=== PATIENT | female | born 1970 | race Caucasian/White ===

== ENCOUNTER 2018-04-01 11:16 | Inpatient (IN) | payer BC ==
--- NOTE | 2018-03-19 12:19 | HP ---
HISTORY AND PHYSICAL: DATE OF OFFICE VISIT: 03/19/18. DATE OF SURGERY: 04/01/18. SURGEON: Georgia Mello MD.* (DICTATED BY KOBE FINLEY) PROCEDURE: Left total knee arthroplasty. CHIEF COMPLAINT: Left knee pain. HISTORY OF PRESENT ILLNESS: Ms. Leroy is a 48-year-old female with complaints of left knee pain. She has failed conservative management and elected to proceed with a left total knee arthroplasty, which is scheduled for 04/01/[address] Mello. PAST MEDICAL HISTORY: Hypertension, goiter, and anxiety. PAST SURGICAL HISTORY: Tubal ligation, partial hysterectomy. CURRENT MEDICATIONS: 1. Metoprolol 50 mg daily. 2. Potassium chloride 20 mEq daily. 3. Chlorthalidone 50 mg daily. 4. Fluoxetine 20 mg daily. 5. Buspirone 15 mg three times a day. 6. Tylenol as needed. ALLERGIES: LATEX and ERYTHROMYCIN. FAMILY HISTORY: Kidney disease, dementia, cervical cancer, and diabetes. SOCIAL HISTORY: She is a 48-year-old female. She lives with her son and ex- . She does not smoke or use drugs; uses occasional alcohol. REVIEW OF SYSTEMS: A complete 14-point review of systems was reviewed with the patient. It is positive for thyroid goiter and occasional palpitations secondary to anxiety. She denies history of DVT, PE, hepatitis, HIV or anesthesia problems. PHYSICAL EXAMINATION GENERAL: She is well developed, well nourished, in no acute distress. VITAL SIGNS: She stands 5 feet 4 inches tall, weighs 245 pounds. Her blood pressure is 128/82, her heart rate is 72. HEENT: Normocephalic, atraumatic. NECK: Supple. No palpable lymph nodes. PULMONARY: The lungs are clear to auscultation bilaterally. CARDIO: Regular rate and rhythm. Strong S1, S2. ABDOMEN: Soft, nontender, nondistended. NEUROLOGIC: She is alert and oriented x3. Cranial nerves II through XII are intact. MUSCULOSKELETAL: Left lower extremity skin is intact. There are no open wounds or abrasions. There is a [id number] joint effusion, some tenderness over the medial and lateral joint line. Range of motion is 10 to 125 degrees, 2+ dorsalis pedis pulses, 5/5 lower extremity strength, and intact sensation. ASSESSMENT AND PLAN: Ms. Leroy is a 48-year-old female with severe end-stage osteoarthritis of her left knee. She has failed conservative management and elected to proceed with a left total knee arthroplasty, which is scheduled for 04/01/[address] Mello discussed the risks and benefits of the surgery at today's visit and all of her questions were answered. She will follow up with Dr. Mello 2 weeks after the surgery. KOBE FINLEY [id number]/[facility] #: [id number] MTDD
[~2018-04-01 11:16] MED LIST: Acetaminophen IV 1GM/100ML * 1,000 MG/100 ML VIAL IVPB ONE; Buffered Lidocaine 0.9% SYRIN* 5 ML/SYR SYRINGE INTRADERM ONE; Dexamethasone IV* 4 MG/ML 1 ML (4 MG) IV SLOW PU ONE; Famotidine IV* 10 MG/ML 2 ML (20 mg) IV ONE; Gabapentin CAP(*) 300 MG PO ONE; Midazolam* 1 MG/ML 5 ML VIAL (5 MG) ONE; Propofol* 10 MG/ML 20 ML BTL IV PUSH ONE; celeCOXIB CAP* 200 MG PO ONE; fentaNYL* 50 MCG/ML 2 ML VIAL (100 MCG VIAL) ONE
[2018-04-01] MEDS ORDERED: Dexamethasone IV* 4 MG/ML 1 ML (4 MG) ONE (11:19)
[2018-04-01] MEDS ORDERED: Famotidine IV* 10 MG/ML 2 ML (20 mg) ONE (11:19)
[2018-04-01] MEDS ORDERED: celeCOXIB CAP* 100 MG ONE ×2 (11:20→11:21)
[2018-04-01] MEDS ORDERED: Gabapentin CAP(*) 300 MG ONE (11:21)
[2018-04-01] MEDS ORDERED: ceFAZolin 2 GM PREMIX (*) 2 GM/50 ML BAG IVPB ONE (11:21)
[2018-04-01] MEDS ORDERED: Ondansetron ODT TAB* 4 MG ONE (11:21)
[2018-04-01] MEDS ORDERED: Acetaminophen IV 1GM/100ML * 100 ML ONE (11:58)
[2018-04-01] MEDS: Ondansetron ODT TAB* 4 MG PO ONE (12:01)
[2018-04-01] MEDS ORDERED: ROPIVACAINE 5 MG/ML 30 ML BTL (0.5%) ONE (12:27)
[2018-04-01] MEDS ORDERED: Bupivacaine 0.5% SDV PF* 30ML VIAL ONE (12:41)
[2018-04-01] MEDS ORDERED: Bupivacaine 0.5% PF 10 ML VIAL INJ ONE (12:49)
[2018-04-01] MEDS ORDERED: Midazolam* 1 MG/ML 5 ML VIAL (5 MG) ONE (12:50)
[2018-04-01] MEDS ORDERED: Lidocaine 0.5%* 50 ML SDV ONE (13:00)
[2018-04-01] MEDS ORDERED: DiMENhydriNATE IV* 50 MG/ML VIAL IV PUSH PRN (13:55)
[2018-04-01] MEDS ORDERED: HYDROmorphone INJ* 1 MG/ML CARPUJECT SYRINGE IV PRN (13:55)
[2018-04-01] MEDS ORDERED: oxyCODONE TAB* 5 MG TAB PO PRN (13:55)
[2018-04-01] MEDS ORDERED: Naloxone* 0.4 MG/ML 1 ML VIAL IV PRN (13:55)
[2018-04-01] MEDS ORDERED: fentaNYL* 50 MCG/ML 2 ML VIAL (100 MCG VIAL) IV PRN (13:55)
[2018-04-01] MEDS ORDERED: Ondansetron INJ* 2 MG/ML VIAL IV PRN ×2 (13:55→15:38)
[2018-04-01] MEDS ORDERED: Propofol* 10 MG/ML 20 ML BTL IV PUSH ONE (14:04)
[2018-04-01] MEDS ORDERED: diPHENhydraMINE IV* 50 MG/ML 1 ml VIAL (BENADRYL) IV PRN (15:38)
[2018-04-01] MEDS ORDERED: Cyclobenzaprine TAB* 10 MG PO PRN (15:38)
[2018-04-01] MEDS ORDERED: Bisacodyl SUPP* 10 MG SUPP PR PRN (15:38)
[2018-04-01] MEDS ORDERED: oxyCODONE/Acetamin 5/325 MG* TAB PO PRN (15:38)
[2018-04-01] MEDS ORDERED: Acetaminophen TAB* 325 MG PO PRN (15:38)
[2018-04-01] MEDS ORDERED: Magnesium Hydroxide LIQ* 30 ML UDC PO PRN (15:38)
--- NOTE | 2018-04-01 16:47 | RAD ---
HISTORY: Status post left knee arthroplasty. COMPARISONS: None VIEWS: 3, Frontal and lateral views of the left knee FINDINGS: BONE DENSITY: Normal. BONES: The patient is status post left knee arthroplasty. There is no hardware failure or osteolysis. JOINTS: The patient is status post left knee arthroplasty. ALIGNMENT: There is no dislocation. SOFT TISSUES: Unremarkable. OTHER FINDINGS: None. IMPRESSION: STATUS POST LEFT KNEE ARTHROPLASTY.
[2018-04-01] MEDS ORDERED: Warfarin TAB(*) 6 MG PO ONE (21:00)
[2018-04-01] MEDS: Docusate CAP* 100 MG PO SCH (21:32)
[2018-04-01] MEDS: Magnesium Hydroxide LIQ* 30 ML UDC PO SCH (21:32)
[2018-04-01] MEDS: ceFAZolin 1 GM in Dextrose (*) 1 GM/50 ML BAG IVPB SCH (21:42)
[2018-04-01] MEDS: FLUoxetine CAP* 20 MG PO SCH (21:44)
[2018-04-01] MEDS: busPIRone TAB* 15 MG PO SCH (21:45)
[2018-04-01] MEDS: oxyCODONE TAB* 5 MG TAB PO PRN (22:08)
--- NOTE | 2018-04-02 01:19 | CONS ---
CC: Dr. Mello; KOBE Al * CONSULTATION REPORT: DATE OF CONSULT: 04/01/18 PRIMARY CARE PROVIDER: KOBE Al REQUESTING PHYSICIAN: Dr. Mello. REASON FOR CONSULT: Management of hypertension in a patient who is status post left total knee arthroplasty. CHIEF COMPLAINT: "I feel funny." HISTORY OF PRESENT ILLNESS: Ariela Leroy is a 48-year-old female status post left total knee arthroplasty by Dr. Mello, who is now feeling "funny" after anesthesia. She complains of mild tingling in toes of bilateral legs after her spinal anesthesia. She was seen very shortly postoperatively and her spinal anesthesia is still working. Otherwise, she has no complaints. PAST MEDICAL HISTORY: 1. Hypertension. 2. History of goiter with normal reported thyroid function studies in the past. 3. History of anxiety. 4. History of right bundle branch block in the past. 5. History of tubal ligation and partial hysterectomy. MEDICATIONS AT HOME: Include: 1. BuSpar 15 mg 3 times a day. 2. Potassium chloride 20 mEq daily. 3. Multivitamin 1 tablet daily. 4. Metoprolol succinate XL 50 mg daily. 5. Fluoxetine 20 mg daily. 6. Chlorthalidone 50 mg daily. ALLERGIES: ADHESIVE TAPE, ERYTHROMYCIN, and LATEX. FAMILY HISTORY: Positive for mother with history of chronic kidney disease, seizures, who in her 70s. The patient's father is alive at the age of 87 with dementia in the intermediate. The patient's father also has history of kidney tumor and chronic kidney disease. The patient's sister had cervical cancer. SOCIAL HISTORY: The patient is a hutton by profession. She denies any tobacco or drug use. She drinks alcohol occasionally. Her surrogate decision maker is her daughter, Veronica Bird. REVIEW OF SYSTEMS: Please see history of present illness. Please note that the patient is still mildly sedated after the procedure. All the remaining 12 systems reviewed with the patient and were otherwise negative. PHYSICAL EXAM: Blood pressure of 112/85, heart rate of 63 and regular, respiratory rate 23, oxygen saturation 98% on 2 L of oxygen via nasal cannula, temperature of 97.0. General: The patient is a pleasant 48-year-old female, who is in no acute distress. The patient is slightly somnolent, but otherwise alert and oriented x3. HEENT: Head: Atraumatic, normocephalic. Eyes: Pupils are equal, reactive to light and accommodation. Oropharynx clear. Mucosa moist. Neck: Supple. No JVD. No bruits bilaterally. Positive for goiter bilaterally with no nodularities on palpation. Cardiovascular: Regular rate and rhythm. No murmur. Respiratory: Clear to auscultation bilaterally. Abdomen: Soft, nontender. Bowel sounds are present in all 4 quadrants. Extremities: There is no ankle edema. Pulses are +2 bilaterally. No clubbing or cyanosis. The patient's left postoperative knee is placed in a Cryo unit. Postoperative dressings were not removed for evaluation. Neuro evaluation was deferred due to the patient's anesthesia. Grossly, the patient's speech is clear and motor strength in the bilateral upper extremities is not impaired. ASSESSMENT AND PLAN: 1. In regards to the patient's hypertension management, I recommend holding the patient's chlorthalidone and continuing metoprolol with hold parameters. I will also hold the patient's potassium supplement for the time being and observe potassium levels in the morning. 2. For the patient's history of anxiety, BuSpar is going to be continued as well as Prozac. 3. DVT prophylaxis will be addressed by the primary service. At this point, the recommendation will be to continue metoprolol and continue holding the patient's chlorthalidone for the time of her hospitalization. All the medications can be restarted at discharge. Medicine will follow on as needed basis and for the time being sign off. Thank you very much for allowing me to see your patient in consultation and please call if any problems need to be addressed in the future. [id number]/[facility] #: [id number] TERRENCE
[2018-04-02] MEDS: oxyCODONE/Acetamin 5/325 MG* TAB PO PRN ×4 (02:07→17:29)
[2018-04-02] MEDS: Morphine VIAL* 4 MG/ML VIAL (1 ml vial) IV PRN ×2 (04:04→18:24)
[2018-04-02] MEDS: oxyCODONE TAB* 5 MG TAB PO PRN ×4 (04:06→21:14)
[2018-04-02] MEDS: ceFAZolin 1 GM in Dextrose (*) 1 GM/50 ML BAG IVPB SCH ×2 (04:50→15:26)
[2018-04-02 05:12] LABS: Hematocrit 35 % (35-47); Hemoglobin 12.5 g/dl (12.0-16.0); Mean Platelet Volume 8.3 um3 (7.4-10.4); Platelet Count 220 10^3/ul (150-450)
[2018-04-02 05:15] LABS: INR 1.1 (0.77-1.02)
[2018-04-02] MEDS ORDERED: Potassium Chlor TAB* 20 MEQ TAB.ER PO ONE (07:38)
[2018-04-02] MEDS: Metoprolol Succinate XL TAB* 50 MG PO SCH (07:59)
[2018-04-02] MEDS: Docusate CAP* 100 MG PO SCH ×2 (08:01→21:10)
[2018-04-02] MEDS: Vitamin THERAPEUTIC TAB PO SCH (08:01)
[2018-04-02] MEDS: Magnesium Hydroxide LIQ* 30 ML UDC PO SCH ×2 (08:01→21:17)
[2018-04-02] MEDS: KCL 10 MEQ/50 ML IVPREMIX* 10 MEQ/50 ML BAG IV SCH ×2 (08:12→12:21)
--- NOTE | 2018-04-02 08:19 | PN ---
Progress Note - Progress Note Date of Service: 04/02/18 SOAP: Subjective: 48 y/o female s/p R TKA 04/[address] Mello. Increased nausea this AM, low K- repleted both IV and PO. Doing well, working with PT. no questions re: surgery. VSS, afebrile overnight. Objective: General- Well appearing, NAD, AO, sitting in chair comfortably, eating breakfast. MSK- LLE- DF/PF = b/l, PT 2+, negative homans sign, dressing intact, no drainage noted, no drain. SITLT. Vital Signs Temp 97.5 F 04/02/18 03:22 Pulse 59 04/02/18 03:22 Resp 16 04/02/18 10:51 BP 118/60 04/02/18 03:22 Pulse Ox 95 04/02/18 03:22 Intake & Output 04/01/18 04/02/18 04/02/18 18:59 06:59 18:59 Intake Total 2500 460 Output Total 525 1750 Balance 1974 -129 Weight 110.132 kg Intake: IV Fluids 2500 LR 2500 IVPB 100 ABX - CEFAZOLIN 100 Oral 360 Output: Kwon 525 1750 Assessment: Stable 48 y/o female s/p R TKA 04/[address] Mello. Plan: - DVT prophylaxis- lovenox, coumadin - 6mg tonight - Continue PT/ OT - Follow up with Dr. Mello within 10-14 days - H&H - stable - post-op IV ABX - running - hypo-K- IV and PO supplementation given. - Possible D/C tomorrow. Acetaminophen (Tylenol Tab*) 650 mg PO Q4H PRN PRN Reason: PAIN OR TEMPERATURE Bisacodyl (Dulcolax Supp*) 10 mg IA DAILY PRN PRN Reason: constipation Buspirone HCl (Buspar Tab *) 15 mg PO TID [facility] Last Admin: 04/02/18 09:41 Dose: 15 mg Chlorthalidone (Hygroton Tab*) 50 mg PO QAM [facility] Last Admin: 04/02/18 09:41 Dose: 50 mg Cyclobenzaprine HCl (Flexeril Tab*) 10 mg PO TID PRN PRN Reason: SPASMS Diphenhydramine HCl (Benadryl Iv*) 25 mg IV Q6H PRN PRN Reason: itching Docusate Sodium (Colace Cap*) 100 mg PO BID [facility] Last Admin: 04/02/18 08:01 Dose: 100 mg Enoxaparin Sodium (Lovenox(*)) 40 mg SUBCUT Q24H [facility] Last Admin: 04/02/18 12:22 Dose: 40 mg Fluoxetine HCl (Prozac Cap*) 20 mg PO QPM [facility] Last Admin: 04/01/18 21:44 Dose: 20 mg Cefazolin Sodium/Dextrose (Kefzol 1 Gm In Dextrose Duplex (*)) 1 gm in 50 mls @ 200 mls/hr IVPB Q8H [facility] Stop: 04/02/18 13:22 Last Admin: 04/02/18 04:50 Dose: 200 mls/hr Lactulose (Lactulose*) 30 ml PO Q6H PRN PRN Reason: constipation Magnesium Hydroxide (Milk Of Magnesia Liq*) 30 ml PO BID [facility] Last Admin: 04/02/18 08:01 Dose: 30 ml Magnesium Hydroxide (Milk Of Magnesia Liq*) 30 ml PO Q6H PRN PRN Reason: constipation Metoprolol Succinate (Toprol Xl Tab*) 50 mg PO QAM [facility] Last Admin: 04/02/18 07:59 Dose: 50 mg Morphine Sulfate (Morphine Vial*) 2 mg IV Q2H PRN PRN Reason: PAIN - UNCONTROLLED Last Admin: 04/02/18 04:04 Dose: 2 mg Multivitamins (Theragran Tab*) 1 tab PO DAILY [facility] Last Admin: 04/02/18 08:01 Dose: 1 tab Ondansetron HCl (Zofran Inj*) 4 mg IV Q6H PRN PRN Reason: nausea Oxycodone HCl (Roxycodone Tab*) 10 mg PO Q4H PRN PRN Reason: PAIN - SEVERE Last Admin: 04/02/18 07:59 Dose: 10 mg Oxycodone/Acetaminophen (Percocet 5/325 Tab*) 2 tab PO Q4H PRN PRN Reason: PAIN Last Admin: 04/02/18 10:51 Dose: 2 tab Oxycodone/Acetaminophen (Percocet 5/325 Tab*) 1 tab PO Q4H PRN PRN Reason: PAIN Pharmacy Profile Note (Coumadin Daily Reminder*) 1 note FOLLOW UP 1700 [facility] Potassium Chloride (Klor-Con Liquid*) 20 meq PO BID MICHAEL Warfarin Sodium (Coumadin Tab(*)) 6 mg PO ONCE@1700 MICHAEL PRN Reason: Protocol Stop: 04/02/18 17:01
[2018-04-02] MEDS ORDERED: Potassium Chlor TAB* 20 MEQ TAB.ER PO SCH ×2 (09:00→21:00)
[2018-04-02] MEDS: Ondansetron ODT TAB* 4 MG PO ONE (09:06)
[2018-04-02] MEDS: Chlorthalidone TAB* 50 MG PO SCH (09:41)
[2018-04-02] MEDS: busPIRone TAB* 15 MG PO SCH ×3 (09:41→21:10)
[2018-04-02] MEDS: Enoxaparin(*) 40 MG/0.4 ML SYR SUBCUT SCH (12:22)
[2018-04-02] MEDS ORDERED: Ondansetron ODT TAB* 4 MG PO PRN (15:13)
[2018-04-02] MEDS ORDERED: Warfarin TAB(*) 6 MG PO SCH (17:00)
[2018-04-02] MEDS: FLUoxetine CAP* 20 MG PO SCH (17:23)
--- NOTE | 2018-04-02 17:49 | PN ---
Subjective Date of Service: 04/02/18 Interval History: Patient was seen and examined earlier this morning. Reports feeling well overall. Ambulatory, had her PT done, Knee pain is well controlled. Denies chest pain, headaches, dizziness or SOB. She has no complaints today. Labs reviewed earlier, hypokalemia noted and both IV and PO supplements given. Family History: Unchanged from Admission Social History: Unchanged from Admission Past Medical History: Unchanged from Admission Objective Active Medications: Acetaminophen (Tylenol Tab*) 650 mg PO Q4H PRN PRN Reason: PAIN OR TEMPERATURE Bisacodyl (Dulcolax Supp*) 10 mg [place] DAILY PRN PRN Reason: constipation Buspirone HCl (Buspar Tab *) 15 mg PO TID [facility] Last Admin: 04/02/18 14:09 Dose: 15 mg Chlorthalidone (Hygroton Tab*) 50 mg PO QAM [facility] Last Admin: 04/02/18 09:41 Dose: 50 mg Cyclobenzaprine HCl (Flexeril Tab*) 10 mg PO TID PRN PRN Reason: SPASMS Diphenhydramine HCl (Benadryl Iv*) 25 mg IV Q6H PRN PRN Reason: itching Docusate Sodium (Colace Cap*) 100 mg PO BID [facility] Last Admin: 04/02/18 08:01 Dose: 100 mg Enoxaparin Sodium (Lovenox(*)) 40 mg SUBCUT Q24H [facility] Last Admin: 04/02/18 12:22 Dose: 40 mg Fluoxetine HCl (Prozac Cap*) 20 mg PO QPM [facility] Last Admin: 04/02/18 17:23 Dose: 20 mg Lactulose (Lactulose*) 30 ml PO Q6H PRN PRN Reason: constipation Magnesium Hydroxide (Milk Of Magnesia Liq*) 30 ml PO BID [facility] Last Admin: 04/02/18 08:01 Dose: 30 ml Magnesium Hydroxide (Milk Of Magnesia Liq*) 30 ml PO Q6H PRN PRN Reason: constipation Metoprolol Succinate (Toprol Xl Tab*) 50 mg PO QAM [facility] Last Admin: 04/02/18 07:59 Dose: 50 mg Morphine Sulfate (Morphine Vial*) 2 mg IV Q2H PRN PRN Reason: PAIN - UNCONTROLLED Last Admin: 04/02/18 04:04 Dose: 2 mg Multivitamins (Theragran Tab*) 1 tab PO DAILY [facility] Last Admin: 04/02/18 08:01 Dose: 1 tab Ondansetron HCl (Zofran Inj*) 4 mg IV Q6H PRN PRN Reason: nausea Ondansetron HCl (Zofran Odt Tab*) 4 mg PO Q6H PRN PRN Reason: NAUSEA Oxycodone HCl (Roxycodone Tab*) 10 mg PO Q4H PRN PRN Reason: PAIN - SEVERE Last Admin: 04/02/18 15:30 Dose: 10 mg Oxycodone/Acetaminophen (Percocet 5/325 Tab*) 2 tab PO Q4H PRN PRN Reason: PAIN Last Admin: 04/02/18 17:29 Dose: 2 tab Oxycodone/Acetaminophen (Percocet 5/325 Tab*) 1 tab PO Q4H PRN PRN Reason: PAIN Pharmacy Profile Note (Coumadin Daily Reminder*) 1 note FOLLOW UP 1700 [facility] Last Admin: 04/02/18 17:23 Dose: 1 note Potassium Chloride (Klor-Con Liquid*) 20 meq PO BID [facility] Vital Signs - 8 hr 04/02/18 04/02/18 04/02/18 10:51 14:11 15:30 Respiratory 16 16 14 Rate 04/02/18 17:29 Respiratory 16 Rate Oxygen Devices in Use Now: None Appearance: Appears comfortable and in NAD Eyes: No Scleral Icterus, PERRLA Ears/Nose/Mouth/Throat: Clear Oropharnyx, Mucous Membranes Moist Neck: NL Appearance and Movements; NL JVP, Trachea Midline Respiratory: Symmetrical Chest Expansion and Respiratory Effort, Clear to Auscultation Cardiovascular: NL Sounds; No Murmurs; No JVD, RRR Abdominal: NL Sounds; No Tenderness; No Distention Extremities: No Edema, - - L knee with clean and dry dressing. No distal edema or swelling. Skin: No Rash or Ulcers Neurological: Alert and Oriented x 3, NL Sensation Nutrition: Taking PO's Result Diagrams: 04/02/18 04:50 04/02/18 04:50 Additional Lab and Data: . Microbiology and Other Data: . Diagnostic Imaging: . EKG Data: . Assess/Plan/Problems-Billing Assessment: A 48 y/o female with PMHx HTN, anxiety and knee osteoarthritis, who is POD#1 s/ p left total knee arthoplasty, doing well. - Patient Problems (1) Total knee replacement status Current Visit: Yes Status: Acute Comment: - Management per ortho - PT/OT - Pain under control (2) Hypertension Current Visit: Yes Status: Acute Comment: - Continue Metoprolol - Controlled (3) Anxiety Current Visit: Yes Status: Acute Comment: - Continue Buspar and Prozac (4) Hypokalemia Current Visit: Yes Status: Acute Comment: - Replace K - Check labs in AM (5) DVT prophylaxis Current Visit: Yes Status: Acute Comment: - Lovenox to Coumadin on D/C per ortho team (6) Full code status Current Visit: Yes Status: Acute Status and Disposition: Inpatient. Anticipate discharge per ortho when stable.
[2018-04-02] MEDS: Potassium Chloride LIQUID* 20 MEQ PACKET PO SCH (21:18)
[2018-04-03] MEDS: oxyCODONE/Acetamin 5/325 MG* TAB PO PRN ×4 (00:03→18:10)
[2018-04-03 06:52] LABS: Hematocrit 37 % (35-47); Hemoglobin 12.9 g/dl (12.0-16.0); Mean Platelet Volume 8.4 um3 (7.4-10.4); Platelet Count 215 10^3/ul (150-450)
[2018-04-03 06:58] LABS: INR 1.65 (0.77-1.02)
[2018-04-03 07:23] LABS: EGFR Non-African American 98.2 (>60)
[2018-04-03] MEDS: Potassium Chloride LIQUID* 20 MEQ PACKET PO SCH ×2 (08:15→21:12)
[2018-04-03] MEDS: Vitamin THERAPEUTIC TAB PO SCH (08:15)
[2018-04-03] MEDS: Chlorthalidone TAB* 50 MG PO SCH (08:15)
[2018-04-03] MEDS: busPIRone TAB* 15 MG PO SCH ×3 (08:15→21:10)
[2018-04-03] MEDS: Docusate CAP* 100 MG PO SCH ×2 (08:15→21:10)
[2018-04-03] MEDS: Metoprolol Succinate XL TAB* 50 MG PO SCH (08:15)
[2018-04-03] MEDS: Magnesium Hydroxide LIQ* 30 ML UDC PO SCH ×2 (08:16→21:12)
--- NOTE | 2018-04-03 09:20 | PN ---
Progress Note - Progress Note Date of Service: 04/03/18 SOAP: Subjective: patient resting comfortably with continued complaints of moderate knee pain Objective: Vital Signs Temp Pulse Resp BP Pulse Ox 98.2 F 67 16 134/59 96 04/03/18 03:42 04/03/18 03:42 04/03/18 08:16 04/03/18 03:42 04/03/18 03:42 Laboratory Last Values Hgb 12.9 g/dl (12.0-16.0) 04/03/18 06:40 Hct 37 % (35-47) 04/03/18 06:40 Plt Count 215 10^3/ul (150-450) 04/03/18 06:40 MPV 8.4 um3 (7.4-10.4) 04/03/18 06:40 INR (Anticoag Therapy) 1.65 (0.77-1.02) H 04/03/18 06:40 Sodium 134 mmol/L (139-145) L 04/03/18 06:40 Potassium 3.4 mmol/L (3.5-5.0) L 04/03/18 06:40 Chloride 93 mmol/L (101-111) L 04/03/18 06:40 Carbon Dioxide 33 mmol/L (22-32) H 04/03/18 06:40 Anion Gap 8 mmol/L (2-11) 04/03/18 06:40 BUN 9 mg/dL (6-24) 04/03/18 06:40 Creatinine 0.64 mg/dL (0.51-0.95) 04/03/18 06:40 Est GFR ( Amer) 126.3 (>60) 04/03/18 06:40 Est GFR (Non-Af Amer) 98.2 (>60) 04/03/18 06:40 BUN/Creatinine Ratio 14.1 (8-20) 04/03/18 06:40 Glucose 134 mg/dL (70-100) H 04/03/18 06:40 Calcium 8.8 mg/dL (8.6-10.3) 04/03/18 06:40 incision: c/d; dressing changed PE: NVI Assessment: s/p right TKA Plan: 1) PT/OT- WBAT 2) Lovenox/Coumadin for DVT prophylaxis 3) Continued potassium BID 4) Home tomorrow
--- NOTE | 2018-04-03 10:26 | OP ---
DATE OF OPERATION: 04/01/18 - ROOM #347 DATE OF : 66 SURGEON: Georgia Mello MD SHRIMP PICKER: KOBE Branch. Reina did help throughout the procedure with preparation of the leg, wound retraction, manipulation of the knee and wound closure ANESTHESIOLOGIST: Dr. Anderson. ANESTHESIA: Spinal PRE-OP DIAGNOSIS: Severe endstage degenerative osteoarthritis of the left knee joint. POST-OP DIAGNOSIS: Severe endstage degenerative osteoarthritis of the left knee joint. OPERATIVE PROCEDURE: Left total knee arthroplasty. COMPLICATIONS: None. ESTIMATED BLOOD LOSS: 200 cc. TOURNIQUET TIME: 46 minutes. SPECIMEN: Bone and cartilage from the left knee joint sent to Pathology. HARDWARE USED: This is [employer] cemented total knee arthroplasty hardware. Two packages of Simplex bone cement. For the femur, a left size 5, narrow posterior stabilized Legion Oxinium femoral component. For the tibia, a size 3 left tibial base plate. For the insert, 9 mm posterior stabilized articular insert, size 3-4. For the patella, a 29-mm 7.5 thickness and 3-peg all -poly patella. BRIEF HISTORY/INDICATION: Ms. Leroy is a 48-year-old female with years of increasingly severe left knee pain. She failed conservative treatments with antiinflammatories, pain medications, physical therapy and injections. Radiographs showed [id number] arthritis. She elected to undergo left total knee arthroplasty due to continued pain and decreased quality of life. Informed consent was obtained from the patient. She understood the risks of surgery included but were not limited to bleeding, infection, damage to nearby structures, continued pain, need for further surgery, intraoperative fracture, nerve palsy, hardware failure or loosening, knee stiffness, loss of motion, stroke, heart attack, blood clot, and . She wishes to proceed. Specific to this patient were her obesity and young age. She understood that both of these factors could lead to early loosening of the implant. She wished to accept this risk and proceed. INTRAOPERATIVE FINDINGS: Intraoperatively, the patient was noted to have full thickness loss of cartilage along the medial and patellofemoral compartments. DESCRIPTION OF PROCEDURE: Ms. Leroy was identified in the preanesthesia unit. Her left lower extremity was marked as the correct operative side. Informed consent was signed and placed in the chart. The patient was taken to the operating room and placed under spinal anesthesia. A tourniquet was placed on the left thigh. Lower extremity was prepped and draped in the usual sterile fashion. Preop time-out was made to correctly identify the patient, side and site. Appropriate perioperative antibiotics were given within 1 hour of incision. Tourniquet was inflated and the total tourniquet time for this procedure was 46 minutes. A midline 12-cm incision was made with a 10 blade and carried down to the extensor mechanism. A new 10 blade was used to make a standard medial parapatellar arthrotomy. The patella was subluxed laterally. Electrocautery was used to subperiosteally elevate the soft tissue along the superomedial tibia. The knee was flexed up. The anterior horn of the lateral meniscus and ACL were sharply released. A drill was used to enter the distal femur. Intramedullary distal femoral cutting guide was pinned on the distal femur. Oscillating saw was used to make the distal femoral cut. The external rotation guide was pinned on the distal femur. Size 5 multi-cutting jug was pinned on the distal femur. Oscillating saw was used to make the appropriate 4 chamfer cuts. The PCL was completely released. The tibia was subluxed anteriorly. Extramedullary tibial cutting guide was pinned on the proximal tibia. Oscillating saw was used to make the proximal tibial cut perpendicular to the mechanical axis of the tibia. The bone was carefully removed. The knee was brought to full extension. A spacer block had good fit, the knee in full extension. Medial and lateral ligaments were well balanced. Flexion and extension gaps were well balanced. Lamina pecan grower was placed both medially and laterally. Any remaining meniscus was carefully removed using electrocautery. Curved osteotome was used to remove any posterior osteophytes. The tibial tray and drop rajinder were placed to once again confirm a satisfactory tibial cut. A left size 5-0 femoral trial was impacted on to the distal femur and had excellent stability. The box for the posterior stabilized implant was prepared using a reamer and box cut osteotome. Size 3 tibial tray trial with a 9-mm insert trial was placed. The knee was taken through a range of motion. The knee had full extension to 120 degrees of flexion. The flexion was inhibited by body habitus. There was satisfactory patellofemoral tracking. The patella was everted. 7 mm of patellar cartilage and bone was carefully removed using an oscillating saw. The patella was sized to a size 29. Three peg holes were drilled through the size 29 guide. A 29 trial patella with 7.5 thickness was placed and the knee was taken through a range of motion. There was satisfactory patellofemoral tracking. All trials were carefully removed. The tibia was subluxed anteriorly and sized to a size 3. Proximal tibia was prepared using a size 3 keel punch. All bony cut surfaces were copiously irrigated with sterile saline. Final implants were cemented into place starting with the tibia, followed by the femur and last, the patella. A 9-mm insert trial was placed and the knee was brought out into full extension. Tourniquet was turned down. The knee was copiously irrigated with sterile saline. Electrocautery was used to obtain meticulous hemostasis. Once the cement had fully curved, the insert trial was removed. Any excess cement was removed from around the capsule and the hardware. Final insert chosen was an 9- mm posterior stabilized articular insert, size 3-4. This was locked into position on the tibial tray without difficulty. Stability of the insert was checked and rechecked and noted to be stable. The extensor mechanism was closed using interrupted #1 Vicryl. The rest of the incision was closed in a layered fashion using 0 to 2-0 Vicryl's. Skin was closed using running 3-0 nylon suture. Sterile Xeroform, 4x4s, and Webril were used to cover the incision. Zoran wrap and cold pack were placed over this. The patient' s anesthesia was reversed without difficulty. She was taken to the PACU in stable condition. Intended weightbearing will be weightbearing as tolerated. Intended DVT prophylaxis will be Coumadin with a Lovenox bridge. [id number]/[facility] #: [id number] [facility]
--- NOTE | 2018-04-03 11:43 | PN ---
Subjective Date of Service: 04/03/18 Interval History: Mrs. Leroy is doing well today. She had her PT this morning, did very well and continue to ambulate as tolerated. Denies any knee pain, chest pain, dizziness or SOB. She has no complaints today. Labs were done this AM, serum potassium level improving. Family History: Unchanged from Admission Social History: Unchanged from Admission Past Medical History: Unchanged from Admission Objective Active Medications: Acetaminophen (Tylenol Tab*) 650 mg PO Q4H PRN PRN Reason: PAIN OR TEMPERATURE Bisacodyl (Dulcolax Supp*) 10 mg MI DAILY PRN PRN Reason: constipation Buspirone HCl (Buspar Tab *) 15 mg PO TID [facility] Last Admin: 04/03/18 08:15 Dose: 15 mg Chlorthalidone (Hygroton Tab*) 50 mg PO QAM [facility] Last Admin: 04/03/18 08:15 Dose: 50 mg Cyclobenzaprine HCl (Flexeril Tab*) 10 mg PO TID PRN PRN Reason: SPASMS Last Admin: 04/02/18 21:09 Dose: 10 mg Diphenhydramine HCl (Benadryl Iv*) 25 mg IV Q6H PRN PRN Reason: itching Docusate Sodium (Colace Cap*) 100 mg PO BID [facility] Last Admin: 04/03/18 08:15 Dose: 100 mg Enoxaparin Sodium (Lovenox(*)) 40 mg SUBCUT Q24H [facility] Last Admin: 04/02/18 12:22 Dose: 40 mg Fluoxetine HCl (Prozac Cap*) 20 mg PO QPM [facility] Last Admin: 04/02/18 17:23 Dose: 20 mg Lactulose (Lactulose*) 30 ml PO Q6H PRN PRN Reason: constipation Magnesium Hydroxide (Milk Of Magnesia Liq*) 30 ml PO BID [facility] Last Admin: 04/03/18 08:16 Dose: 30 ml Magnesium Hydroxide (Milk Of Magnesia Liq*) 30 ml PO Q6H PRN PRN Reason: constipation Metoprolol Succinate (Toprol Xl Tab*) 50 mg PO QAM [facility] Last Admin: 04/03/18 08:15 Dose: 50 mg Morphine Sulfate (Morphine Vial*) 2 mg IV Q2H PRN PRN Reason: PAIN - UNCONTROLLED Last Admin: 04/02/18 18:24 Dose: 2 mg Multivitamins (Theragran Tab*) 1 tab PO DAILY [facility] Last Admin: 04/03/18 08:15 Dose: 1 tab Ondansetron HCl (Zofran Inj*) 4 mg IV Q6H PRN PRN Reason: nausea Ondansetron HCl (Zofran Odt Tab*) 4 mg PO Q6H PRN PRN Reason: NAUSEA Oxycodone HCl (Roxycodone Tab*) 10 mg PO Q4H PRN PRN Reason: PAIN - SEVERE Last Admin: 04/02/18 21:14 Dose: 10 mg Oxycodone/Acetaminophen (Percocet 5/325 Tab*) 2 tab PO Q4H PRN PRN Reason: PAIN Last Admin: 04/03/18 08:16 Dose: 2 tab Oxycodone/Acetaminophen (Percocet 5/325 Tab*) 1 tab PO Q4H PRN PRN Reason: PAIN Pharmacy Profile Note (Coumadin Daily Reminder*) 1 note FOLLOW UP 1700 [facility] Last Admin: 04/02/18 17:23 Dose: 1 note Potassium Chloride (Klor-Con Liquid*) 20 meq PO BID [facility] Last Admin: 04/03/18 08:15 Dose: 20 meq Warfarin Sodium (Coumadin Tab(*)) 6 mg PO ONCE@1700 [facility] PRN Reason: Protocol Stop: 04/03/18 17:01 Vital Signs - 8 hr 04/03/18 04/03/18 04/03/18 03:42 08:16 09:23 Temperature 98.2 F Pulse Rate 67 Respiratory 16 16 Rate Blood Pressure 134/59 (mmHg) O2 Sat by Pulse 96 96 Oximetry Oxygen Devices in Use Now: None Appearance: Appears comfortable and in NAD Eyes: No Scleral Icterus, PERRLA Ears/Nose/Mouth/Throat: Clear Oropharnyx, Mucous Membranes Moist Neck: NL Appearance and Movements; NL JVP, Trachea Midline Respiratory: Symmetrical Chest Expansion and Respiratory Effort, Clear to Auscultation Cardiovascular: NL Sounds; No Murmurs; No JVD, RRR Abdominal: NL Sounds; No Tenderness; No Distention Extremities: No Edema Neurological: Alert and Oriented x 3, NL Sensation Nutrition: Taking PO's Result Diagrams: 04/03/18 06:40 04/03/18 06:40 Additional Lab and Data: . Microbiology and Other Data: . Diagnostic Imaging: . EKG Data: . Assess/Plan/Problems-Billing Assessment: A 48 y/o female with PMHx HTN, anxiety and knee osteoarthritis, who is POD#2 s/ p left total knee arthoplasty, doing well. - Patient Problems (1) Total knee replacement status Current Visit: Yes Status: Acute Comment: - Management per ortho - PT/OT - Pain under control (2) Hypertension Current Visit: Yes Status: Acute Comment: - Continue Metoprolol - Controlled (3) Anxiety Current Visit: Yes Status: Acute Comment: - Continue Buspar and Prozac (4) Hypokalemia Current Visit: Yes Status: Acute Comment: - Continue daily KCL supplement - Labs checked, K level has improved (5) DVT prophylaxis Current Visit: Yes Status: Acute Comment: - Lovenox to Coumadin on D/C per ortho team (6) Full code status Current Visit: Yes Status: Acute Status and Disposition: Inpatient. Anticipate discharge to home tomorrow per ortho team.
[2018-04-03] MEDS: Enoxaparin(*) 40 MG/0.4 ML SYR SUBCUT SCH (12:16)
[2018-04-03] MEDS ORDERED: Warfarin TAB(*) 6 MG PO SCH (17:00)
[2018-04-03] MEDS: FLUoxetine CAP* 20 MG PO SCH (18:10)
[2018-04-03] MEDS: oxyCODONE TAB* 5 MG TAB PO PRN (21:10)
[2018-04-04 07:00] LABS: Hematocrit 38 % (35-47); Hemoglobin 13.2 g/dl (12.0-16.0); Mean Platelet Volume 8.5 um3 (7.4-10.4); Platelet Count 224 10^3/ul (150-450)
[2018-04-04] MEDS: oxyCODONE/Acetamin 5/325 MG* TAB PO PRN (07:10)
[2018-04-04 07:12] LABS: INR 2.05 (0.77-1.02)
[2018-04-04] MEDS: Vitamin THERAPEUTIC TAB PO SCH (08:04)
[2018-04-04] MEDS: Metoprolol Succinate XL TAB* 50 MG PO SCH (08:04)
[2018-04-04] MEDS: Chlorthalidone TAB* 50 MG PO SCH (08:04)
[2018-04-04] MEDS: busPIRone TAB* 15 MG PO SCH (08:04)
[2018-04-04] MEDS: Docusate CAP* 100 MG PO SCH (08:04)
[2018-04-04] MEDS: Potassium Chloride LIQUID* 20 MEQ PACKET PO SCH (08:04)
[2018-04-04] MEDS: Magnesium Hydroxide LIQ* 30 ML UDC PO SCH (08:05)
--- NOTE | 2018-04-04 10:15 | PN ---
Progress Note - Progress Note Date of Service: 04/04/18 SOAP: Subjective: resting comfortably in bed, pain well controlled with po meds Objective: Vital Signs Temp Pulse Resp BP Pulse Ox 98.4 F 72 18 126/56 94 04/04/18 03:44 04/04/18 03:44 04/04/18 07:17 04/04/18 03:44 04/04/18 08:15 Laboratory Last Values Hgb 13.2 g/dl (12.0-16.0) 04/04/18 06:31 Hct 38 % (35-47) 04/04/18 06:31 Plt Count 224 10^3/ul (150-450) 04/04/18 06:31 MPV 8.5 um3 (7.4-10.4) 04/04/18 06:31 INR (Anticoag Therapy) 2.05 (0.77-1.02) H 04/04/18 06:31 Sodium 134 mmol/L (139-145) L 04/03/18 06:40 Potassium 3.4 mmol/L (3.5-5.0) L 04/03/18 06:40 Chloride 93 mmol/L (101-111) L 04/03/18 06:40 Carbon Dioxide 33 mmol/L (22-32) H 04/03/18 06:40 Anion Gap 8 mmol/L (2-11) 04/03/18 06:40 BUN 9 mg/dL (6-24) 04/03/18 06:40 Creatinine 0.64 mg/dL (0.51-0.95) 04/03/18 06:40 Est GFR ( Amer) 126.3 (>60) 04/03/18 06:40 Est GFR (Non-Af Amer) 98.2 (>60) 04/03/18 06:40 BUN/Creatinine Ratio 14.1 (8-20) 04/03/18 06:40 Glucose 134 mg/dL (70-100) H 04/03/18 06:40 Calcium 8.8 mg/dL (8.6-10.3) 04/03/18 06:40 incision: c/d/i PE: NVI Assessment: s/p left TKA Plan: 1) PT/OT 2) Coumadin FOR DVT prophylaxis 3) Home today; f/u with [facility] in 2 weeks
[2018-04-04] MEDS: Enoxaparin(*) 40 MG/0.4 ML SYR SUBCUT SCH (10:43)
--- NOTE | 2018-04-04 11:55 | DS ---
DISCHARGE SUMMARY: DATE OF ADMISSION: 04/01/18 DATE OF DISCHARGE: 04/04/18 SURGEON: Georgia Mello MD.* (DICTATED BY KOBE FINLEY) PRINCIPAL DIAGNOSIS: Severe endstage osteoarthritis of the left knee. DISCHARGE DIAGNOSIS: Severe endstage osteoarthritis of the left knee. HISTORY OF PRESENT ILLNESS: Ms. Leroy is a 48-year-old female with endstage osteoarthritis of the left knee. She failed conservative management and elected to proceed with a left total knee arthroplasty. HOSPITAL COURSE: Ms. Leroy is admitted electively to the hospital on 04/01/18 and underwent a left total knee arthroplasty. She tolerated the procedure well without complications. Postoperatively, she was placed on Lovenox and Coumadin for DVT prophylaxis. Postoperative day 1, her H and H was 12 and 35 and on postoperative day 2 were 12 and 37 and postoperative day 3 were 13 and 38. Her INR went from 1.1 to 2.05 on the day of discharge. At the time of discharge, she was afebrile. Vital signs were stable. Her wound was clean and dry. DISCHARGE MEDICATIONS: 1. Klor-Con 20 mEq twice daily. 2. Flexeril 10 mg 2 to 3 times a day as needed for spasm. 3. Percocet 5/325 one or two tabs every 4 to 6 hours for pain. 4. Coumadin 2 mg. 5. Chlorthalidone 50 mg daily. 6. Prozac 20 mg daily. 7. Metoprolol 50 mg daily. PHYSICAL EXAM UPON DISCHARGE: She was afebrile. Her vital signs were stable. Her wound was clean and dry. She was ambulating well with the aid of a walker. She was distally neurovascularly intact. DISCHARGE INSTRUCTIONS: She was discharged home in stable condition. She was given a prescription for Percocet to take every 4 to 6 hours for pain. She was given a prescription for Coumadin 2 mg tabs. She was asked to take 2 mg Thursday night. [facility] will recheck her INR on Thursday. She can start showering on Thursday let soap and water run over the incision, pat the area dry. She need to leave the area open to air, re-dress with a clean, dry dressing. She is weightbearing as tolerated. It was also recommended she continue her Klor-Con 20 mEq twice daily. She will follow up with Dr. Mello in 2 weeks. KOBE FINLEY [id number]/[facility] #: [id number] [place]
[2018-04-04 12:10] VITALS: BP 120/53
== END 2018-04-04 15:11 | disposition home health service (06) | DRG 302 ==
LOC: AA 11:16 → SSU 20:09
PROVIDERS: ADMIT Orthopaedic Surgery Adult Reconstructive Orthopaedic Surgery; ATTEND Orthopaedic Surgery Adult Reconstructive Orthopaedic Surgery
PROC: 0SRD069 Replacement of Left Knee Joint with Oxidized Zirconium on Polyethylene Synthetic Substitute, Cemented, Open Approach (ICD-10-PCS; principal; 2018-04-01 13:00)
DX: M17.12 Unilateral primary osteoarthritis, left knee (principal); Z68.41 Body mass index [BMI] 40.0-44.9, adult; I10 Essential (primary) hypertension; F41.9 Anxiety disorder, unspecified; E04.9 Nontoxic goiter, unspecified; E66.9 Obesity, unspecified; I45.10 Unspecified right bundle-branch block; F32.9 Major depressive disorder, single episode, unspecified; M25.762 Osteophyte, left knee; R11.0 Nausea; E87.6 Hypokalemia; Z88.1 Allergy status to other antibiotic agents; Z91.040 Latex allergy status; Z84.1 Family history of disorders of kidney and ureter; Z82.0 Family history of epilepsy and other diseases of the nervous system; Z90.711 Acquired absence of uterus with remaining cervical stump; Z98.51 Tubal ligation status; Z80.49 Family history of malignant neoplasm of other genital organs; Z83.3 Family history of diabetes mellitus; Z72.89 Other problems related to lifestyle; Z88.8 Allergy status to other drugs, medicaments and biological substances; Z82.3 Family history of stroke; Z81.8 Family history of other mental and behavioral disorders; Z79.01 Long term (current) use of anticoagulants
CPT/HCPCS: 36415; 80048; 84132; 85014; 85018; 85049; 85610; 88305; 88311; A9270-GY; C1776; G8978-GP-CL; G8979-GP-CJ; J0690; J1100; J1650; J2250; J2270; J2704; J2795; J3010; J3480